=== PATIENT | female | born 1950 ===

== ENCOUNTER 2022-07-04 07:11 | Day surgery (SDC) | payer MEDICARE ==
[2022-07-04 08:49] VITALS: BP 117/58; TEMP 98
[2022-07-04] MEDS ORDERED: Iopamidol-M 200 41% 10 ML VIAL FS ONE (12:39)
== END 2022-07-04 09:22 | disposition home or self-care (01) ==
LOC: RAD 07:11
PROVIDERS: ATTEND Neurological Surgery
PROC: B01B1ZZ Fluoroscopy of Spinal Cord using Low Osmolar Contrast (ICD-10-PCS; principal; 2022-07-04)
DX: M51.16 Intervertebral disc disorders with radiculopathy, lumbar region (principal); M47.26 Other spondylosis with radiculopathy, lumbar region; Z79.899 Other long term (current) drug therapy
CPT/HCPCS: 62304; 72100; 72132; Q9966

== ENCOUNTER 2023-09-26 10:26 | Outpatient (CLI) | payer MEDICARE | END 2023-09-26 10:27 | disposition home or self-care (01) | LOC: ULT 10:26 | PROVIDERS: ATTEND Internal Medicine Nephrology | DX: I12.9 Hypertensive chronic kidney disease with stage 1 through stage 4 chronic kidney disease, or unspecified chronic kidney disease (principal); N18.9 Chronic kidney disease, unspecified | CPT/HCPCS: 76770; 93975 ==